=== PATIENT | male | born 1940 | race Caucasian/White ===

== ENCOUNTER 2018-04-26 15:13 | Emergency (ER) | payer OTHER ==
[~2018-04-26] VITALS: Ht 180.3 cm; Wt 92.5 kg
[~2018-04-26 15:13] MED LIST: ALBUTEROL INHAL17 GM IH; ALBUTEROL2.5 MG/0.1 INH; ASPIRIN81 M2 PO; ATIVAN1 MG PO; AZITHROMYCIN 2250 MG PO; CO Q-10100 M1 PO; FISH OIL 1,001000 M2 PO; FLOMAX PO; FLOMAX0.4 MG PO; FLONASE 0.05%50 MCG NASAL; HYDROCODONE-AP1 EAC6 PO; LEVAQUIN 500 M500 M2 PO; MAGNESIUM CITR100 MG PO; METOPROLOL SUCC25 M1 PO; NASAL STEROID; OXAZEPAM 15 MG15 M1 PO; PREDNISONE 20 M20 M1 PO; PRILOSEC40 MG PO; RESTASIS1 EACH OP; SIMVASTATIN20 MG PO; VITAMIN D-32000 UNIT PO; ZOFRAN ODT4 MG PO; [UNRECOGNIZED DRUG - SUPPLY]
[2018-04-26] MEDS ORDERED: FINASTERIDE5 MG PO (16:38)
[2018-04-26] MEDS ORDERED: ASPIR 8181 MG PO (16:39)
[2018-04-26] MEDS ORDERED: ATIVAN0.5 MG PO (16:39)
[2018-04-26] MEDS ORDERED: OXAZEPAM 15 MG15 M1 PO (16:39)
[2018-04-26] MEDS ORDERED: UBIQUINOL100 MG PO (16:40)
[2018-04-26] MEDS ORDERED: EZ TEARS PO (16:40)
[2018-04-26] MEDS ORDERED: HYDROCODONE-AP1 EAC6 PO (18:14)
[2018-04-26] MEDS ORDERED: KEFLEX500 M1 PO (18:14)
[2018-04-26] MEDS ORDERED: SENNA8.6 MG PO (18:14)
[2018-04-26 18:55] VITALS: BP 137/70
== END 2018-04-26 18:56 | disposition home or self-care (01) ==
LOC: ER 15:13
DX: S61.317A Laceration without foreign body of left little finger with damage to nail, initial encounter (principal); K21.9 Gastro-esophageal reflux disease without esophagitis; N40.0 Benign prostatic hyperplasia without lower urinary tract symptoms; E78.00 Pure hypercholesterolemia, unspecified; Z85.828 Personal history of other malignant neoplasm of skin; Z90.49 Acquired absence of other specified parts of digestive tract; W26.9XXA Contact with unspecified sharp object(s), initial encounter; Y93.89 Activity, other specified; Y92.89 Other specified places as the place of occurrence of the external cause; Y99.8 Other external cause status

== ENCOUNTER → 2020-06-01 | Outpatient (CLI) | payer OTHER ==
[~2020-06-01] MED LIST changes: +ASPIR 8181 MG PO; +ATIVAN0.5 MG PO; +EZ TEARS PO; +FINASTERIDE5 MG PO; +KEFLEX500 M1 PO; +SENNA8.6 MG PO; +UBIQUINOL100 MG PO
== END ==
LOC: SJCVC 12:56
PROVIDERS: ATTEND Internal Medicine
DX: R00.1 Bradycardia, unspecified (principal); I25.10 Atherosclerotic heart disease of native coronary artery without angina pectoris; E78.5 Hyperlipidemia, unspecified; K21.9 Gastro-esophageal reflux disease without esophagitis; E78.00 Pure hypercholesterolemia, unspecified; Z79.82 Long term (current) use of aspirin; Z79.899 Other long term (current) drug therapy; Z87.891 Personal history of nicotine dependence

== ENCOUNTER 2020-08-04 23:49 | Inpatient (IN) | payer OTHER ==
[~2020-08-04] VITALS: Ht 152.4 cm; Wt 87.5 kg
--- NOTE | ~2020-08-04 | O ---
[facility] [place] [address] OPERATIVE REPORT Name: AB WHITESIDE Room #: 439-P [facility] IN M.R.#: [id number] Admission: 08/05/20 Attend Phys: Wiley Armstrong MD Discharge: 08/06/20 Date of : 44 Report #: [id number] THIS REPORT FOR: cc: Kamaljit Savage MD, Greg L. MD Chu,Wiley Aly MD ~ CC: Kamaljit Armstrong PREOPERATIVE DIAGNOSIS: Acute cholecystitis. POSTOPERATIVE DIAGNOSES: Acute cholecystitis with cholelithiasis. PROCEDURE PERFORMED: Laparoscopic cholecystectomy with cholangiogram. SURGEON: Wiley Armstrong MD ANESTHESIA: General anesthesia. COMPLICATIONS: None. ESTIMATED BLOOD LOSS: 20 mL PROCEDURE NOTE: With the patient under general anesthesia, abdomen was prepped and draped in sterile fashion. Timeout was performed. A 0.25% Marcaine was used to anesthetize the skin inferior to the umbilicus. Curvilinear incision was made infraumbilically, fascia identified and the fascia was grasped with hemostats. Fascia was opened under visualization, 0 Vicryl suture placed on the fascia edges for retraction. Veress needle was then placed through the peritoneum. Abdominal cavity was insufflated by CO2. After creating pneumoperitoneum pressure of 15, 11 mm trocar was placed under visualization into the pneumoperitoneum, no harm to the underlying tissue. The patient did have a generalized colonic ileus. There is exudate over the gallbladder. The colon and the fat that was above the colon was inflamed and adhesed to the gallbladder. This adhesion was able to be swept down easily. Two 5 mm trocars were placed in the right upper quadrant and a 5 mm trocar was placed in right epigastrium. The gallbladder was free and isolated. The gallbladder was distended, thickened and red. The peritoneum over this area also noted to be moderately inflamed as opposed to the left side. Gallbladder was decompressed. The gallbladder was then grasped and lifted over the liver. The cystic duct area was dissected. Cystic duct was found. There is a twisting of the gallbladder neck to the cystic duct folded on itself. Cystic duct was isolated. Common duct was not visualized, but likely more medial posteriorly underneath the fat. Cystic duct was clipped at the junction to the gallbladder. Opening was made in the cystic duct proximal to this. Cholangiogram catheter inserted. Fluoroscopic cholangiogram was obtained. Common bile duct filled out well. [address] [address] OPERATIVE REPORT Name: AB WHITESIDE Room #: 439-P [facility] IN M.R.#: [id number] Admission: 08/05/20 Attend Phys: Wiley Armstrong MD Discharge: 08/06/20 Date of : 44 Report #: [id number] filling defect. Cholangiogram catheter was then removed. Proximal cystic duct was then clipped x 2 and then divided. Cystic artery was then identified, hemoclipped x 2 proximally and 1 distally, and then divided. Gallbladder was free from the liver bed. There was a small posterior artery, this was also clipped. Gallbladder was free from the liver bed. Gallbladder was placed in specimen bag. The gallbladder was then retrieved through the infraumbilical port. Gallbladder was opened off the field. The gallbladder had a malodorous smell and then there are numerous small stones in the gallbladder. Hemostasis was checked and obtained. Irrigation was performed. Irrigation was aspirated out. Trocars then removed under visualization. CO2 was evacuated. Infraumbilical fascia defect was closed with [id number] 0 Vicryl x 2. Skin was irrigated, closed with 5-0 PDS. Steri-Strip, Band-Aids applied. The patient tolerated the procedure well and was taken to recovery room. By: [id number] Wiley Armstrong MD /nt
[2020-08-04 23:52] VITALS: BP 140/59
[2020-08-05 00:43] LABS: ABSOLUTE NEUTROPHILS 9.3 thou/uL (1.4-8.2); BASOPHILS 0.4 % (0.0-2.0); EOSINOPHILS 0.6 % (0.0-3.0); HEMATOCRIT 46.1 % (42.0-52.0); HEMOGLOBIN 15.7 gm/dL (14.0-18.0); LYMPHOCYTES 20.7 % (24.0-44.0); MCH 30.4 pg (26.0-34.0); MCV 89.2 fL (80.0-100.0); PLATELET COUNT 250 thou/uL (150-400); POLYS 72.3 % (36.0-66.0); RBC 5.17 mil/uL (4.50-6.00); RDW 13.6 % (10.5-14.5); WBC 12.9 thou/uL (4.0-11.0)
[2020-08-05 01:21] LABS: ANION GAP 8 mmol/L (7-16); BUN 15 mg/dL (7-18); CHLORIDE 103 mmol/L (98-107); CO2 28 mmol/L (21-32); GLUCOSE 140 mg/dL (74-106); POTASSIUM 3.5 mmol/L (3.5-5.1); SODIUM 139 mmol/L (136-145)
[2020-08-05 01:31] LABS: ALBUMIN 4.1 g/dL (3.4-5.0); LIPASE 97 U/L (73-393); SGOT 17 U/L (15-37); SGPT 17 U/L (30-65); TOTAL BILIRUBIN 1.1 mg/dL (0.2-1.0); TOTAL PROTEIN 7.3 g/dL (6.4-8.2); TROPONIN-I <0.06 ng/mL (<0.06)
[2020-08-05 01:54] LABS: URINE BILIRUBIN NEGATIVE (Negative); URINE BLOOD NEGATIVE (Negative); URINE CLARITY CLEAR; URINE COLOR YELLOW; URINE GLUCOSE-RANDOM* NEGATIVE (Negative); URINE KETONES NEGATIVE (Negative); URINE LEUKOCYTES-REFLEX NEGATIVE (Negative); URINE NITRITE-REFLEX NEGATIVE (Negative); URINE PROTEIN (DIPSTICK) NEGATIVE (Negative); URINE SPECIFIC GRAVITY 1.025 (1.005-1.035); URINE UROBILINOGEN 0.2 E.U./dl (0.2-1.0)
[2020-08-05 04:12] VITALS: BP 135/73
[2020-08-05 04:20] VITALS: BP 135/73
[2020-08-05 04:45] VITALS: BP 143/76
--- NOTE | 2020-08-05 05:39 | NUR ---
0445 pt to floor from er vss, pt with right upper quad pain ache rated 4/10 denies n/v/d at this time, awake alert and oriented x 4, ambulating easily, admission completed, pt oriented to room. will continue to monitor.
--- NOTE | 2020-08-05 07:51 | EKG ---
[facility] [place] [address] ELECTROCARDIOGRAM REPORT Name: AB WHITESIDE Room #: 439- ADM IN M.R.#: [id number] Admission: 08/05/20 Attend Phys: Wiley Armstrong MD Discharge: Date of : 44 Report #: [id number] THIS REPORT FOR: cc: Kamaljit Savage MD, Greg L. 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: brianna hunt rn : 1940 Requested By: Rene Pierce Order Number: [id number] MD: Bret Lopez Measurements Intervals [place] Rate: 52 P: 31 AR: 224 QRS: -16 QRSD: 107 T: 29 QT: 436 QTc: 406 Interpretive Statements Sinus rhythm Prolonged AR interval Poor R wave progression Compared to ECG 09/08/2015 08:39:46 First degree AV block now present Electronically Signed On 08-05-2020 7:50:59 CDT by Bret Lopez [email or web address] <ELECTRONICALLY SIGNED> By: Bret Lopez MD, FAC 08/05/20 0750 0026 0026 Bret Lopez MD, [facility] /EPI
[2020-08-05 08:00] VITALS: BP 153/87
--- NOTE | 2020-08-05 12:14 | NUR ---
PATIENT TAKEN TO SURGERY AT THIS TIME. URINATED BEFORE LEAVING. COVID 19 SHOWS NEGATIVE,
--- NOTE | 2020-08-05 14:14 | NUR ---
chart review. shobha tried to visit with macario but he already went for surgery lab chol. cm visited with son joaquin via phone call. intro to cm and dcp. he reported, he lives home with mom, independent. no dme, manage own medication. drives, no hh or rehab in past. been to outpt therapy in past. retired per son joaquin. will cont following as needed for dc needs. dcp home
[2020-08-05 14:59] VITALS: BP 131/71
--- NOTE | 2020-08-05 15:32 | NUR ---
PATIENT CAME TO ROOM 439 FROM POST OP REPORT WAS GIVEN TO THIS NURSE. PT ALERT XS 4. FLUIDS INFUSING ORDERED. CLEAR LIQUID DIET. GIVEN POPSICLE AND JELL ALSO DRINKING WATER. V.S 98.9 20 131/71 85 O2 SAT 95%RA. PT STATES NO PAIN NO RESP DISTRESS. HAS 4 SURGICAL SITES COVERED WITH BANDAIDS THAT ARE DRY AND INTACT. FAMILY AT BEDSIDE.
[2020-08-05 19:42] VITALS: BP 133/64
--- NOTE | 2020-08-06 04:24 | NUR ---
PATIENT ALERT AND ORIENTED X4. UP IN ROOM AT SIDE OF BED USING URINAL WITH GOOD OUTPUT. IVF INFUSING W/O COMPLICATION. TOLERATING CLEAR LIQUIDS WITHOUT NAUSEA OR VOMITING. SURGERY ON 08/05/20. INCISION SITES DRY AND INTACT. PATIENT ONLY C/O PAIN X1 AND REQUESTED TYLENOL WHICH CONTROLLED HIS PAIN. IV ABX INFUSED W/O COMPLICATION. RESTING QUIETLY. WILL MONITOR.
[2020-08-06 08:11] VITALS: BP 126/75
[2020-08-06] MEDS ORDERED: HYDROCODON-ACE1 EAC7 PO (10:58)
[2020-08-06 13:42] VITALS: BP 126/75
--- NOTE | 2020-08-09 16:06 | PATH ---
[facility] [address] [place] [address] PATHOLOGY RPT PROCEDURE Name: AB WHITESIDE Room #: 439-P [facility] IN M.R.#: [id number] Admission: 08/05/20 Date of : 44 Discharge: 08/06/20 Report #: [id number] Path Case #: [id number] [facility] Accession Number: [id number] . 01 Material submitted: . gallbladder - GALLBLADDER . 01 Clinical history: . ACUTE CHOLECYSTITIS . 02 Diagnosis: Gallbladder, cholecystectomy: - Marked acute and chronic cholecystitis associated with extensive ulceration as well as gangrenous necrosis. - No calculi received (specimen received open). (IUV:wet silk hanger; 08/09/2020) MBR 08/09/2020 1409 Local . 02 Electronically signed: . Rema Johnson MD, Pathologist NPI- [id number] . 01 Gross description: . The specimen is received in formalin, labeled "Ab Whiteside gallbladder". Received is a previously opened gallbladder measuring 8.3 x 3.5 x 1.1 cm in greatest dimensions displaying a pink-hunt serosal surface. Opening the specimen reveals a velvety and light brown to bile-stained mucosa with a gallbladder wall thickness of 0.1 cm. Calculi are not present, and no masses or lesions are noted grossly. Cable Splicing Technician sections, to include the proximal margin, are submitted in cassette A1. (CAA; 08/08/2020) QAC/QAC 08/09/2020 1406 Local . 02 Pathologist provided ICD-10: K81.2, K82.8 . 02 CPT . 570244 Specimen Comment: A courtesy copy of this report has been sent to [phone], [phone] Specimen Comment: [phone] Specimen Comment: Report sent to / DR CUEVAS Performed at: [address], [place] [id number] MD Arden Moore MD Phone: [phone] Performed at: [address] [place] [address] PATHOLOGY RPT PROCEDURE Name: AB WHITESIDE Room #: 439-P DIS IN M.R.#: [id number] Admission: 08/05/20 Date of : 44 Discharge: 08/06/20 Report #: [id number] Path Case #: [id number] [facility] [address], [place], [place] [id number] MD Rema Johnson MD Phone: [phone]
== END 2020-08-06 14:53 | disposition home or self-care (01) | DRG 419 ==
LOC: ER 23:49 → EROBS 08-05 04:11 → 4S 08-05 04:11 → EROBS 08-05 04:21 → 4S 08-05 04:22
PROVIDERS: Emergency Medicine; ADMIT Surgery; ATTEND Surgery
PROC: 0FT44ZZ Resection of Gallbladder, Percutaneous Endoscopic Approach (ICD-10-PCS; principal; 2020-08-05)
PROC: BF141ZZ Fluoroscopy of Gallbladder, Bile Ducts and Pancreatic Ducts using Low Osmolar Contrast (ICD-10-PCS; 2020-08-05)
DX: K80.00 Calculus of gallbladder with acute cholecystitis without obstruction (principal); K21.9 Gastro-esophageal reflux disease without esophagitis; G47.30 Sleep apnea, unspecified; E78.00 Pure hypercholesterolemia, unspecified; N40.0 Benign prostatic hyperplasia without lower urinary tract symptoms; Z20.828 Contact with and (suspected) exposure to other viral communicable diseases; Z90.89 Acquired absence of other organs; Z79.899 Other long term (current) drug therapy; Z79.82 Long term (current) use of aspirin; Z68.37 Body mass index [BMI] 37.0-37.9, adult; Z79.891 Long term (current) use of opiate analgesic
CPT/HCPCS: 10195; 50010; 50101; 50411; 50555; 50558; 51489; 51687; 52265; 53307; 53310; 53312; 55245; 55317; 56462; 56525; 56526; 62110; 62900; 70005

== ENCOUNTER 2020-10-12 13:45 | Emergency (ER) | payer OTHER ==
[~2020-10-12] VITALS: Ht 180.3 cm; Wt 86.2 kg
[~2020-10-12 13:45] MED LIST changes: +HYDROCODON-ACE1 EAC7 PO
[2020-10-12 16:28] VITALS: BP 112/69
== END 2020-10-12 16:24 | disposition home or self-care (01) ==
LOC: ER 13:45
DX: S20.229A Contusion of unspecified back wall of thorax, initial encounter (principal); S09.90XA Unspecified injury of head, initial encounter; K21.9 Gastro-esophageal reflux disease without esophagitis; E78.5 Hyperlipidemia, unspecified; Z90.49 Acquired absence of other specified parts of digestive tract; Z90.89 Acquired absence of other organs; Z79.82 Long term (current) use of aspirin; Z79.899 Other long term (current) drug therapy; W10.8XXA Fall (on) (from) other stairs and steps, initial encounter; Y93.89 Activity, other specified; Y92.89 Other specified places as the place of occurrence of the external cause; Y99.8 Other external cause status

== ENCOUNTER → 2021-05-29 | Outpatient (CLI) | payer OTHER | LOC: SJCVCIMAG 08:26 | PROVIDERS: ATTEND Internal Medicine | DX: R00.0 Tachycardia, unspecified (principal); R06.00 Dyspnea, unspecified; I25.10 Atherosclerotic heart disease of native coronary artery without angina pectoris; I49.3 Ventricular premature depolarization; E78.5 Hyperlipidemia, unspecified; K21.9 Gastro-esophageal reflux disease without esophagitis; E78.00 Pure hypercholesterolemia, unspecified; Z87.891 Personal history of nicotine dependence; Z72.89 Other problems related to lifestyle; Z79.82 Long term (current) use of aspirin; Z79.899 Other long term (current) drug therapy ==